=== PATIENT | female | born 1980 | race Caucasian/White ===

== ENCOUNTER 2025-02-13 10:25 | Emergency (ER) | payer OTHER ==
[~2025-02-13] VITALS: Ht 152.4 cm; Wt 110.0 kg
[2025-02-13] MEDS ORDERED: MELOXICAM15 MG PO (10:44)
[2025-02-13] MEDS ORDERED: PROPRANOLOL HCL10 MG PO (10:46)
[2025-02-13] MEDS ORDERED: VYVANSE50 MG (10:46)
[2025-02-13] MEDS ORDERED: WELLBUTRIN XL150 MG PO (10:46)
[2025-02-13] MEDS ORDERED: NEURONTIN100 MG PO (10:46)
[2025-02-13] MEDS: KETOROLAC TROMETHAMINE 30 MG/ML VIAL IM ONE (11:09)
[2025-02-13 11:30] VITALS: PULSE 86; RESP 18; TEMP 98.1; O2SAT 96
== END 2025-02-13 11:30 | disposition home or self-care (01) ==
LOC: FSED 10:27
DX: S76.812A Strain of other specified muscles, fascia and tendons at thigh level, left thigh, initial encounter (principal); W01.0XXA Fall on same level from slipping, tripping and stumbling without subsequent striking against object, initial encounter; Y93.51 Activity, roller skating (inline) and skateboarding; Y92.89 Other specified places as the place of occurrence of the external cause
CPT/HCPCS: 96372; 99283; J1885